=== PATIENT | female | born 1975 | race Caucasian/White ===

== ENCOUNTER 2024-07-05 08:08 | Outpatient (CLI) | payer OTHER, SELFPAY ==
--- NOTE | ~2024-07-05 | US_ITS ---
Limited Abdominal Sonogram: Real-time sonographic imaging of the right upper quadrant was performed. Clinical History: Right upper quadrant pain Findings: The liver appears echogenic, with no evidence of mass lesion or bile duct dilatation. Main portal vein demonstrates normal direction of flow. The gallbladder is partially distended, and appea rs normal with no evidence of gallstone or wall thickening. The common bile duct measures 5 mm. The visualized pancreas, aorta, and IVC are unremarkable. Impression: Diffuse fatty infiltration of the liver. Reviewed, dictated and finalized at location M. UET MANAGER Impression: Diffuse fatty infiltration of the liver.
== END 2024-07-05 08:09 | disposition home or self-care (01) ==
LOC: MICIMG 08:10
PROVIDERS: PCP Nurse Practitioner Family; Visit Provider Nurse Practitioner Family
DX: K76.0 Fatty (change of) liver, not elsewhere classified (principal); R73.01 Impaired fasting glucose; I10 Essential (primary) hypertension
CPT/HCPCS: 76705

== ENCOUNTER 2025-06-16 16:20 | Outpatient (CLI) | payer OTHER, SELFPAY ==
--- NOTE | ~2025-06-16 | MR_ITS ---
EXAMINATION: MR brain IAC wo/w con DATE: 06/16/2025 17:22 INDICATION: Facial weakness. TECHNIQUE: Magnetic resonance imaging (MRI) of the brain, brainstem, and internal auditory canals was performed without and with 20 mL MultiHance intravenous contrast. COMPARISON: None. FINDINGS: There are scattered areas of nonspecific increased T2-weighted signal intensity in the cerebral white matter. There is no intracranial hemorrhage, acute infarction, or abnormal intracranial mass lesion. The ventricles are normal in size. The orbits are normal. There is mild mucosal thickening in the paranasal sinuses. There is a small left mastoid effusion. There is abnormal contrast enhancement of right facial nerve, consistent with Hollingsworth palsy. IMPRESSION: 1. Right-sided Hollingsworth palsy. 2. Mild nonspecific cerebral white matter disease, which likely represents chronic small vessel ischemic disease. Reviewed, dictated and finalized at location [employer]IC[employer] IMPRESSION: 1. Right-sided Hollingsworth palsy. 2. Mild nonspecific cerebral white matter disease, which likely represents ben day artist kiana small vessel ischemic disease.
--- OUTSIDE RECORDS SUMMARY | 2025-06-16 16:24 | XMS_ITS | Clinical Summary ---
Author Organization [facility] Care Team Providers Care Laboratory Coordinator Name Role Phone Unavailable Primary Care Provider Unavailabl e Social History Tobacco Use Types Packs/Day Years Used Date Smoking Tobacco: Never Assessed Comments Unknown Sex and Gender Information Value Date Recorded Sex Assigned at Not on file Legal Sex Female 1:35 PM CDT Gender Identity Not on file Sexual Orientation Not on file Plan of Treatment Health Maintenance Due Date Last Done Comments Hepatitis C Virus (HCV) Screening 1975 TdaP Immunization 1975 Hepatitis B Immunization (1 of 3 - 19+ 3-dose series) 1994 Pap Smear 1996 Cervical Cancer Screening (CCS) 2005 HPV/Cotest 2005 Cologuard 2020 Colonoscopy 2020 Colorectal Cancer Screening 2020 Immunochemical Fecal Occult Blood 2020 Influenza Immunization (#1) 2025 SARS-COV-2 Immunization ( season) 2025 Respiratory Syncytial Virus (RSV) Immunization (Adult) (1 - 1-dose 75+ series) 2050 Human Papillomavirus (HPV) Immunization Aged Out No longer eligible b ased on patient's age to complete this topic Meningococcal Immunization (ACWY) Aged Out No longer eligible based on patient's age to complete this topic Pneumococcal Immunization Combined Aged Out No longer eligible based on patient's age to complete this topic Rotavirus Immunization Aged Out No lo nger eligible based on patient's age to complete this topic
--- OUTSIDE RECORDS SUMMARY | 2025-06-16 16:24 | XMS_ITS | Clinical Summary ---
Author Organization [facility] Address [address] [place] [address] Care Team Providers Care Human Resources Benefits Administrator Name Role Phone No, Physician Primary Care Provider [phone] Allergies Active Allergy Reactions Criticality Noted Date Comments Dexbrompheniramine-Pseudoephed Rash Medium 06/12 Penicillamine Anaphylaxis High 11/30/2023 Penicillins Swelling Medium 06/20/2024 Medications ketorolac (TORADOL) 10 mg tabletIndication s:Severe Pain Take 1 tablet (10 mg total) by mouth every 6 (six) hours as needed for pain 20 tablet 11/30/2023 Active ondansetron (ZOFRAN) 4 mg tablet Take 1 tablet (4 mg total) by mouth every 6 (six) hours 12 tablet 11/30/2023 Active Encounters Date Type Department Care Team Description 06/12/2025 11:45 PM PASTEURIZER - 06/12/2025 11:46 PM [facility] Emergency [facility] Emergency Department [address] [place] [address] Zachary Schwartz MD Discharge Disposition: Left Against Medical Advice from Last 3 Months Immunizations Immunization Administration Dates Next Due Sars-CoV-2, Unspecified 01/08/2021,12/18/2020 Social History Tobacco Use Types Packs/Day Years Used Date Smoking Tobacco: Never Tobacco Cessation:Counseling Given: Not Answered Personal Safety Answer Date Recorded Have you ever been in or are you currently in a harmful physical or emotional relationship or is someone making you feel afraid or unsafe? Denies 06/12/2025 Comments No Sex and Gender Information Value Date Recorded Sex Assigned at Not on file Legal Sex Female 5:46 PM PASTEURIZER Gender Identity Not on file Sexual Orientation Not on file Last Filed Vital Signs Vital Sign Reading Time Taken Comments Blood Pressure 181/79 06/12/2025 9:17 PM PASTEURIZER Pulse 58 06/12/2025 9:17 PM PASTEURIZER Temperature 37.4 C (99.3 F) 06/12/2025 6:55 PM PASTEURIZER Respiratory Rate 16 06/12/2025 9:17 PM PASTEURIZER Oxygen Saturation 100% 06/12/2025 9:17 PM PASTEURIZER Inhaled Oxygen Concentration - - Weight 118.8 kg (262 lb) 06/12/2025 6:55 PM PASTEURIZER Height 162.6 cm (5' 4) 06/12/2025 6:55 PM PASTEURIZER Body Mass Index 44.97 06/12/2025 6:55 PM PASTEURIZER Plan of Treatment Health Maintenance Due Date Last Done Comments Cervical Cancer Screening 1975 Colon Cancer Screening-Colonoscopy 1975 Depression Screening 1975 Hepatitis C Screening 1975 DTaP/Tdap/Td Vaccine (1 - Tdap) 1986 Hepatitis B Screening 1993 Regular Well Visit/Exam 18-64 1993 Breast Cancer Screening-Mammogram 03/18/2022 03/18/2021 Covid-19 Vaccine ( season) 2025 01/08/2021, 01/08/2021, 12/18/2020, Additional history exists Influenza Vaccine (#1) 2025 Zoster Vaccine (1 of 2) 2025 Pneumococcal vaccine <65 Aged Out No longer eligible based on patient's age to complete this topic Procedures Procedure Name Priority Date/Time Associated Diagnosis Comments EGFR STAT 06/12/2025 9:46 PM PASTEURIZER DIFFERENTIAL AUTO STAT 06/12/2025 9:4 6 PM PASTEURIZER TROPONIN I HIGH-SENSITIVITY SERIES (BASELINE, 2HR, 4HR, 6HR) STAT 06/12/2025 9:46 PM PASTEURIZER APTT STAT 06/12/2025 9:46 PM PASTEURIZER COMPREHENSIVE METABOLIC PANEL STAT 06/12/2025 9:46 PM PASTEURIZER CBC WITH AUTO DIFFERENTIAL STAT 06/12/2025 9:46 PM PASTEURIZER ECG 12-LEAD STAT 06/12/2025 7:21 PM PASTEURIZER ED CRITICAL CARE Routine 06/12/2025 6:[address] STROKE PROTOCOL WO CONTRAST Critical/Life-T hreatening 06/12/2025 6:24 PM PASTEURIZER POCT GLUCOSE DEVICE Routine 06/12/2025 6 :16 PM PASTEURIZER from Last 3 Months Results * Troponin I high-sensitivity series (baseline, 2hr, 4hr, 6hr) (06/12/2025 9:46 PM PASTEURIZER) Pathologist [facility] Trop I hs <4 <=17 ng/L Comment: Interpretive Data For further hscTnI resources including the diagnostic algorithm and an aid in interpretation, copy and paste this link: https://bjhlab.testcatalog.org/show/[email or web address] Current Interpretive Data last revised 2020. Blood 06/12/2025 9:46 PM PASTEURIZER 06/12/2025 9:55 PM PASTEURIZER us Zachary Schwartz MD LAB BLOOD ORDERABLES F inal Result [facility] Department [place] [address] * eGFR (06/12/2025 9:46 PM PASTEURIZER) [facility] eGFR >90 >=60 mL/min/1. 73 m2 Comment: Interpretive Data Reference Interval Normal >/= 90 mL/min/1.73m2 Mildly decreased* 60 - 89 mL/min/1.73m2 Mildly to moderately decreased 45 - 59 mL/min/1.73m2 Moderately to severely decreased 30 - 44 mL/min/1.73m2 Severely decreased 15 - 29 mL/min/1.73m2 Kidney Failure < 15 mL/min/1.73m2 *Relative to young adult level Estimated glomerular filtration rate is determined by the 2020 CKD-EPI equation recommended by the National Kidney Foundation (A Unifying Approach to GFR Estimation: Recommendations of the NKF-ASK Task Force on Reassessing the Inclusion of Race in Diagnosing Kidney Disease, JASN 202). The CKD-EPI equation should not be used for patients with unstable renal function and has not been validated in children and those over 70. Current interpretive data was last reviewed 2021. Blood 06/12/2025 9:46 PM PASTEURIZER 06/12/2025 9:55 PM PASTEURIZER us Ignacio Jarrell MD LAB BLOOD ORDERABLES F inal Result [facility] Department [place] [address] * (ABNORMAL) Differential, auto (06/12/2025 9:46 PM PASTEURIZER) Neutrophil abs 5.82 1.50 - 6.50 K/cumm Imm gran abs 0.02 0.00 - 0.10 K/cumm [facility] Lymphocyte abs 2.23 0.80 - 3.30 K/cumm [facility] Monocyte abs 0.89(H) 0.20 - 0.80 K/cumm [facility] Eosinophil abs 0.39 0.00 - 0.50 K/cumm [facility] Basophil abs 0.06 0.00 - 0.10 K/cumm [facility] Neutrophil pct 61.9 % [facility] Comment: Interpretive Data Percent cell count reference ranges are not reported, since discordance with absolute values may lead to misinterpretation of CBC data. Current Interpretive Data was last revised on 2017. Imm gran pct 0.2 % [facility] Comment: Interpretive Data Percent cell count reference ranges are not reported, since discordance with absolute values may lead to misinterpretation of CBC data. Current Interpretive Data was last revised on 2017. Lymphocyte pct 23.7 % [facility] Comment: Interpretive Data Percent cell count reference ranges are not reported, since discordance with absolute values may lead to misinterpretation of CBC data. Current Interpretive Data was last revised on 2017. Monocyte pct 9.5 % [facility] Comment: Interpretive Data Percent cell count reference ranges are not reported, since discordance with absolute values may lead to misinterpretation of CBC data. Current Interpretive Data was last revised on 2017. Eosinophil pct 4.1 % [facility] Comment: Interpretive Data Percent cell count reference ranges are not reported, since discordance with absolute values may lead to misinterpretation of CBC data. Current Interpretive Data was last revised on 2017. Basophil pct 0.6 % [facility] Comment: Interpretive Data Percent cell count reference ranges are not reported, since discordance with absolute values may lead to misinterpretation of CBC data. Current Interpretive Data was last revised on 2017. Blood 06/12/2025 9:46 PM PASTEURIZER 06/12/2025 9:55 PM PASTEURIZER us Ignacio Jarrell MD LAB BLOOD ORDERABLES F inal Result [facility] Department [place] [address] * CBC with auto differential (06/12/2025 9:46 PM PASTEURIZER) WBC 9.41 3.80 - 9.90 K/cumm Hgb 14.2 11.9 - 15.5 g/dL [facility] Hct 41.2 35.6 - 45.5 % [facility] Plt 278 150 - 400 K/cumm [facility] MPV 11.0 9.1 - 12.3 fL [facility] RBC 4.64 3.90 - 5.20 M/cumm [facility] MCV 88.8 81.3 - 96.4 fL [facility] MCH 30.6 27.1 - 33.3 pg [facility] MCHC 34.5 32.3 - 35.7 g/dL [facility] RDW CV 12.4 11.1 - 14.9 % [facility] RDW SD 40.1 35.7 - 48.1 fL [facility] NRBC abs 0.00 0.00 - 0.01 K/cumm [facility] Blood Venous blood specimen / Unknown 06/12/2025 9:46 PM PASTEURIZER 06/12/2025 9:55 PM PASTEURIZER Narrative [facility] - 06/12/2025 10:07 PM PASTEURIZER Potential Stroke Patient Zachary Schwartz MD LAB BLOOD ORDERABLES F inal Result Performing Organization Address [facility] Co de Phone Number [facility] Department [place] [address] * (ABNORMAL) aPTT (06/12/2025 9:46 PM PASTEURIZER) Pathologist [facility] aPTT 25(L) 26 - 38 sec Comment: Interpretive Data Heparin therapeutic range: 66.0 - 100.0 seconds. Range based on correlation with therapeutic heparin activity range of 0.3 - 0.7 Units/mL. Blood Venous blood specimen / Unknown 06/12/2025 9:46 PM PASTEURIZER 06/12/2025 10:07 PM PASTEURIZER Narrative [facility] - 06/12/2025 10:16 PM PASTEURIZER Potential stroke patient. Zachary Schwartz MD LAB BLOOD ORDERABLES F inal Result Performing Organization Address [facility] Co de Phone Number [facility] Department [place] [address] * Comprehensive metabolic panel (06/12/2025 9:46 PM PASTEURIZER) Pathologist [facility] Sodium 137 135 - 145 mmol/L Potassium, pl 4.1 3.3 - 4.9 mmol/L [facility] Comment:Hemolyzed; Potassium value may be falsely elevated by as much as 0.3-0.5 mmol/L. Suggest redraw and reanalysis. Chloride 103 97 - 110 mmol/L [facility] CO2 26 22 - 32 mmol/L [facility] Anion gap 8 2 - 15 mmol/L [facility] BUN 10 6 - 25 mg/dL [facility] Creatinine 0.70 0.60 - 1.10 mg/dL [facility] Glucose 90 70 - 199 mg/dL [facility] Comment: Interpretive Data Fasting glucose >/= 126 mg/dl is diagnostic for diabetes. Fasting is defined as no caloric intake for at least 8 hours. Fasting glucose between 100 mg/dl to 125 mg/dl is diagnostic of prediabetes. In a patient with classic symptoms of hyperglycemia or hyperglycemic crisis, a random glucose >/= 200 mg/dl is diagnostic for diabetes. In the absence of unequivocal hyperglycemia, results should be confirmed by repeat testing. The classification and Diagnosis of Diabetes Diabetes Care 2021; 46: S19-S40. Current interpretive data was last revised 2022. Calcium 9.5 8.5 - 10.3 mg/dL [facility] Bilirubin, total 0.5 0.1 - 1.2 mg/dL [facility] Protein, pl 8.1 6.5 - 8.5 g/dL [facility] Albumin 4.2 3.5 - 5.0 g/dL [facility] Alk phos 71 40 - 130 Units/L [facility] ALT 16 7 - 45 Units/L [facility] AST 29 10 - 45 Units/L [facility] Comment:Hemolyzed; result ma y be falsely elevated Blood Venous blood specimen / Unknown 06/12/2025 9:46 PM PASTEURIZER 06/12/2025 9:55 PM PASTEURIZER Narrative [facility] - 06/12/2025 10:24 PM PASTEURIZER Potential Stroke Patient us Zachary Schwartz MD LAB BLOOD ORDERABLES F inal Result [facility] Department [place] [address] * ECG 12-LEAD (06/12/2025 7:21 PM PASTEURIZER) Narrative [facility] - 06/12/2025 7:21 PM PASTEURIZER Sangita Reyes DO 06/12/2025 7:21 PM ECG 12 lead Date/Time: 06/12/2025 7:21 PM Performed by: Sangita Reyes DO Authorized by: Zachary Schwartz MD Rate: ECG rate: 57 ECG rate assessment: bradycardic Rhythm: Rhythm: sinus bradycardia Ectopy: Ectopy: none QRS: QRS axis: Normal QRS intervals: Normal Conduction: Conduction: normal ST segments: ST segments: Normal T waves: T waves: normal Interpretation: Interpretation: normal Recommended Follow-up: Recommended follow up: further workup in the ED Procedure Note Sangita Reyes DO - 06/12/2025 7:21 PM CST Procedure ECG 12 lead Date/Time: 06/12/2025 7:21 PM Performed by: Sangita Reyes DO Authorized by: Zachary Schwartz MD Rate: ECG rate: 57 ECG rate assessment: bradycardic Rhythm: Rhythm: sinus bradycardia Ectopy: Ectopy: none QRS: QRS axis: Normal QRS intervals: Normal Conduction: Conduction: normal ST segments: ST segments: Normal T waves: T waves: normal Interpretation: Interpretation: normal Recommended Follow-up: Recommended follow up: further workup in the ED Sangita Reyes DO 06/12/251920 Zachary Schwartz MD ECG ORDERABLES Edited Result - Final [facility] * Critical Care (06/12/2025 6:26 PM PASTEURIZER) Narrative Zachary Schwartz MD - 06/12/2025 6:26 PM PASTEURIZER Zachary Schwartz MD 06/12/2025 6:26 PM Critical Care Performed by: Zachary Schwartz MD Authorized by: Zachary Schwartz MD Critical care provider statement: As reflected in the history, physical exam, orders, notes, and/or MDM, I was personally present while the patient was critically ill and provided critical care services for 20 minutes, excluding time involved in separately billable procedures. Critical care was necessary to treat or prevent imminent or life-threatening deterioration of the following condition(s): Stroke alert, history taking, discussion with Neurology consultation Critical care was time spent by me providing the following: continuous telemetry and continuous pulse oximetry frequent neurologic exams, decision regarding acute lytic therapy and initiation of stroke management Neurology consultation I provided emergent necessary critical care medicine services to this patient. I ordered and reviewed test results and/or imaging studies. I spent time discussing the management of this critically ill patient with consultants and the medical staff. us Zachary Schwartz MD IN CLINIC/BEDSIDE [facility]ENE [facility]IANG Final Result * CT Stroke Head WO Contrast (06/12/2025 6:24 PM PASTEURIZER) Anatomical Region Laterality Modality Head N/A Computed Tomogra phy 06/12/2025 6:33 PM PASTEURIZER Impressions 06/12/2025 6:37 PM PASTEURIZER No large bleed or territorial infarct. The Non Critical results were discussed with Dr. Jacob MD by Dr. Adis Roman M.D. (Ramanan) on 06/12/2025 6:22 PM. Dictated by: Adis Roman M.D. (Ramanan) The radiology attending physician has personally reviewed this study, and had reviewed and/or edited this written report and agrees with it. Electronically signed by: Asad Kaufman MD Narrative 06/12/2025 6:37 PM PASTEURIZER EXAMINATION: CT head without contrast HISTORY: 50-year-old female presenting to the ED with left-sided facial numbness and drooping, last known normal was 10:30 PM on 06/11/2025. TECHNIQUE: CT of the head was performed with images acquired from skull base to vertex without intravenous contrast. COMPARISON: None FINDINGS: There is no acute intracranial hemorrhage. Ventricles are of normal size and morphology. No mass effect or midline shift is present. Periventricular hypoattenuation can be seen with chronic microvascular ischemic changes. The visualized portions of the orbits are normal. Underpneumatized aeration of the right mastoid. Sphenoid sinus mucosal thickening. No fractures are identified. Procedure Note Asad Kaufman MD - 06/12/2025 EXAMINATION: CT head without contrast HISTORY: 50-year-old female presenting to the ED with left-sided facial numbness and drooping, last known normal was 10:30 PM on 06/11/2025. TECHNIQUE: CT of the head was performed with images acquired from skull base to vertex without intravenous contrast. COMPARISON: None FINDINGS: There is no acute intracranial hemorrhage. Ventricles are of normal size and morphology. No mass effect or midline shift is present. Periventricular hypoattenuation can be seen with chronic microvascular ischemic changes. The visualized portions of the orbits are normal. Underpneumatized aeration of the right mastoid. Sphenoid sinus mucosal thickening. No fractures are identified. IMPRESSION: No large bleed or territorial infarct. The Non Critical results were discussed with Dr. Jacob MD by Dr. Adis Roman M.D. (Ramanan) on 06/12/2025 6:22 PM. Dictated by: Adis Roman M.D. (Ramanan) The radiology attending physician has personally reviewed this study, and had reviewed and/or edited this written report and agrees with it. Electronically signed by: Asad Kaufman MD us Zachary Schwartz MD IMG CT PROCEDURES Sunitha l Result * POCT glucose (06/12/2025 6:16 PM PASTEURIZER) Glucose, POC 74 70 - 199 mg/dL Blood 06/12/2025 6:16 PM PASTEURIZER 06/12/2025 6:16 PM PASTEURIZER Zachary Schwartz MD LAB POCT ORDERABLES - DEVICE Final Result [facility] Department [place] [address] from Last 3 Months Insurance [facility] [employer] [facility] [facility] HMO/PPO Address: [facility] [id number] [place] [address] Care Teams Human Resources Benefits Administrator Relationship Specialty Start Date End Date No, Physician PCP - General 06/12/25
== END 2025-06-16 16:21 | disposition home or self-care (01) ==
PROVIDERS: PCP Nurse Practitioner Family; Visit Provider Nurse Practitioner
DX: G51.0 Bell's palsy (principal); R90.82 White matter disease, unspecified
CPT/HCPCS: 70553; A9577